=== PATIENT | female | born 1980 | race Caucasian/White ===

== ENCOUNTER 2016-09-23 09:18 | Emergency (ER) | payer MEDICAID ==
[~2016-09-23] VITALS: Ht 149.9 cm; Wt 81.5 kg
[~2016-09-23 09:18] MED LIST: GENT5DRO28 LEFT EYE
[2016-09-23 09:35] VITALS: Ht 149.9 cm; Wt 81.5 kg
[2016-09-23] MEDS ORDERED: ACETAMINOPHEN 500 MG TAB PO STA (10:09)
[2016-09-23] MEDS ORDERED: ONDANSETRON (ODT) 4 MG TAB ODT STA (10:09)
[2016-09-23 10:29] LABS: ADD UMIC YES; URINE BILIRUBIN (Dip) NEGATIVE (NEGATIVE); URINE BLOOD (Dip) 1+ (NEGATIVE); URINE COLOR YELLOW (YELLOW); URINE GLUCOSE (Dip) NEGATIVE (NEGATIVE); URINE KETONES (Dip) 15 (NEGATIVE); URINE LEUKOCYTE ESTERASE (Dip) NEGATIVE (NEGATIVE); URINE NITRITE (Dip) NEGATIVE (NEGATIVE); URINE TOTAL PROTEIN (Dip) NEGATIVE (NEGATIVE); URINE UROBILINOGEN (Dip) 0.2 E.U./dL (0.1-1.0)
[2016-09-23] MEDS ORDERED: FAMOTIDINE 20 MG TAB PO ONE (10:30)
[2016-09-23 11:04] LABS: MUCUS,URINE MODERATE; SQUAMOUS EPITHELIAL CELL,UR MODERATE
[2016-09-23] MEDS ORDERED: ACET500C5 PO (11:09)
[2016-09-23] MEDS ORDERED: BISM262O23 PO (11:09)
[2016-09-23] MEDS ORDERED: ONDA8TAB14 PO (11:09)
--- NOTE | 2016-09-23 11:12 | ERD ---
ER Documentation Chief Complaint Date/Time DATE: 09/23/16 TIME: 11:11 Chief Complaint GENERALIZED ABDOMINAL PAIN, DIARRHEA AND NAUSEA SINCE FRIDAY HPI This 36-year-old female complains of a three-day history of nonbilious vomiting and nonbloody and diarrhea which is watery without blood or mucus. She also has epigastric abdominal pain. She denies any right upper quadrant pain, lower abdominal pain, dysuria, fevers. There is a household contacts with similar symptoms ROS All systems reviewed and are negative except as per history of present illness. Medications Home Meds Active Scripts Bismuth Subsalicylate* (Pepto-Bismol*) 262 Mg/15 Ml Oral.susp, 15 ML PO Q3H Y for DIARRHEA for 5 Days, ML Prov:JOSHUA MORENO MD 09/23/16 Acetaminophen* (Tylophen*) 500 Mg Capsule, 1 CAP PO Q6H Y for PAIN AND OR ELEVATED TEMP, #15 CAP Prov:JOSHUA MORENO MD 09/23/16 Ondansetron (Ondansetron Odt) 8 Mg Tab.rapdis, 8 MG PO Q6H Y for NAUSEA AND/OR VOMITING, #8 TAB Prov:JOSHUA MORENO MD 09/23/16 Gentamicin Sulfate* (Gentamicin Sulfate* Ophth) 0.3% - 5 Ml Drops, 1 DROP LEFT EYE Q4 for 7 Days, EA Prov:KAMARI PAGE MD 02/07/16 Allergies Allergies: Coded Allergies: No Known Drug Allergy (Verified Allergy, Unknown, 02/07/16) PMhx/Soc History of Surgery: No Anesthesia Reaction: No Hx Neurological Disorder: No Hx Respiratory Disorders: No Hx Cardiac Disorders: No Hx Psychiatric Problems: No Hx Miscellaneous Medical Probl: No Hx Alcohol Use: No Hx Substance Use: No Hx Tobacco Use: No Smoking Status: Never smoker Physical Exam Vitals Vital Signs Date Time Temp Pulse Resp B/P Pulse Ox O2 Delivery O2 Flow Rate FiO2 09/23/16 09:35 98.4 80 18 108/68 98 Physical Exam Const: [] Alert, [id number]. Head: Atraumatic Eyes: Normal Conjunctiva ENT: Normal External Ears, Nose and Mouth. Neck: Full range of motion..~ No meningismus. Resp: Clear to auscultation bilaterally Cardio: Regular rate and rhythm, no murmurs Abd: Soft, minimal epigastric tenderness. No tenderness at McBurney's point no Stacy sign., non distended. Normal bowel sounds Skin: No petechiae or rashes Back: No midline or flank tenderness Ext: No cyanosis, or edema Neur: Awake and alert Psych: Normal Mood and Affect Results 24 hrs Laboratory Tests Test 09/23/16 10:14 Urine Color YELLOW Urine Clarity CLEAR Urine pH 5.5 Urine Specific [place] 1.020 Urine Ketones 15 Urine Nitrite NEGATIVE Urine Bilirubin NEGATIVE Urine Urobilinogen 0.2 E.U./dL Urine Leukocyte Esterase NEGATIVE Urine Microscopic RBC 2-5/HPF Urine Microscopic WBC 0-2/HPF Urine Squamous Epithelial Cells MODERATE Urine Mucus MODERATE Urine Hemoglobin 1+ Urine Glucose NEGATIVE% Urine Total Protein NEGATIVE Current Medications Medications (Trade) Dose Ordered Sig/Eliane Route PRN Reason Start Time Stop Time Status Last Admin Dose Admin Ondansetron HCl (Zofran Odt) 8 mg ONCE STAT ODT 09/23/16 10:09 09/23/16 10:11 DC 09/23/16 10:16 Acetaminophen (Tylenol Tab) 500 mg ONCE STAT PO 09/23/16 10:09 09/23/16 10:12 DC 09/23/16 10:16 Famotidine (Pepcid) 20 mg ONCE ONCE PO 09/23/16 10:30 09/23/16 10:31 DC 09/23/16 10:16 Procedures/MDM Urine is negative for acute findings. HCG is negative. Patient was given Zofran 8 mg by mouth and Tylenol. Patient has vomiting diarrhea and epigastric pain consistent with likely viral gastroenteritis. Current signs or symptoms do not suggest appendicitis, hepatobiliary disease, obstruction, sepsis, UTI. She will treated with Zofran at home instructions for bland diet instructions to follow-up with primary doctor this week or return to the ER for any worsening symptoms. The patient was stable with no new complaints during the ER course. Clinically, there is no current evidence to suggest meningitis, sepsis, acute abdomen, pneumonia, acute coronary syndrome, pulmonary embolism, or any other emergent condition appearing to require further evaluation or hospitalization. The patient should certainly return for any new or worsening symptoms per the aftercare instructions. They should otherwise follow-up with her primary care doctor for reevaluation this week. Departure Diagnosis: Primary Impression: Vomiting and diarrhea Additional Impression: Abdominal pain Abdominal location: epigastric Qualified Code: R10.13 - Epigastric pain Condition: Stable Patient Instructions: Diarrhea, Viral (Child) (Adult), Vomiting (6Y-Adult) Additional Instructions: probablamente un virus que dura 2-4 augustin. cheque otro jan el proximo ayana para mas simptomas- vomito, dolor, natalia, problemas con respirando, o con oneill doctor primario. JOSHUA MORENO MD Sep 23, 2016 11:12
== END 2016-09-23 11:19 | disposition home or self-care (01) ==
LOC: FTE 09:18
DX: R11.10 Vomiting, unspecified (principal); R19.7 Diarrhea, unspecified; R10.13 Epigastric pain
CPT/HCPCS: 81001; Z7610; 99283

== ENCOUNTER 2017-12-02 17:53 | Emergency (ER) | END 2017-12-02 21:35 | disposition home or self-care (01) ==